=== PATIENT | male | born 1975 | race Caucasian/White ===

== ENCOUNTER 2021-09-29 16:52 | Emergency (ER) | payer SELFPAY ==
[2021-09-29 17:39] LABS: HEMOGLOBIN 14.8 gm/dl (14.0-17.5); RED BLOOD COUNT 4.83 M/UL (4.20-5.50); WHITE BLOOD COUNT 8.3 K/UL (4.5-11.0)
[2021-09-29 18:00] LABS: BUN/CREATININE RATIO 8 (0-10)
[2021-09-29] MEDS ORDERED: TAMIFLU 75 MG C75 MG PO (19:36)
== END 2021-09-29 19:48 | disposition home or self-care (01) ==
LOC: ER1 16:52
PROVIDERS: Nurse Practitioner
DX: J10.1 Influenza due to other identified influenza virus with other respiratory manifestations (principal); Z20.822 Contact with and (suspected) exposure to COVID-19; I48.91 Unspecified atrial fibrillation; I25.2 Old myocardial infarction; I10 Essential (primary) hypertension; F17.210 Nicotine dependence, cigarettes, uncomplicated; Z86.73 Personal history of transient ischemic attack (TIA), and cerebral infarction without residual deficits; Z88.1 Allergy status to other antibiotic agents; Z88.6 Allergy status to analgesic agent; Z88.0 Allergy status to penicillin; Z79.82 Long term (current) use of aspirin
CPT/HCPCS: 0240U; 71045; 80053; 81001; 82550; 82553; 83605; 84484; 85025; 86140; 87040; 93005; 96374; 99284; J2405; J7030

== ENCOUNTER 2022-01-11 16:12 | Emergency (ER) | payer OTHER ==
[~2022-01-11 16:12] MED LIST: TAMIFLU 75 MG C75 MG PO
[2022-01-11] MEDS ORDERED: BACTROBAN OINT22 GM EXT (16:42)
[2022-01-11] MEDS ORDERED: BACTRIM DS TAB1 EACH PO (16:42)
== END 2022-01-11 16:45 | disposition home or self-care (01) ==
LOC: ER1 16:12
DX: S51.802A Unspecified open wound of left forearm, initial encounter (principal); L08.9 Local infection of the skin and subcutaneous tissue, unspecified; I25.2 Old myocardial infarction; F17.200 Nicotine dependence, unspecified, uncomplicated; Z86.73 Personal history of transient ischemic attack (TIA), and cerebral infarction without residual deficits; X08.8XXA Exposure to other specified smoke, fire and flames, initial encounter
CPT/HCPCS: 99283